=== PATIENT | male | born 1995 | race Caucasian/White ===

== ENCOUNTER 2020-12-11 08:00 | Outpatient (RCR) | payer OTHER, SELFPAY ==
[2020-11-28 12:18] VITALS: BMI 30.2
--- NOTE | 2020-11-28 12:54 | PC.ADMIT ---
Patient is a 25 year old male who was referred to PHP by his therapist d/t increase in depression with passive SI, increased in anxiety and anger. He had a recent admission to [facility] then transitioned to substance rehabilitation at [facility]. In addition, patient has 2 feloney charges and has a court appearence on 01/03/21. Patient is currently living with his parents. Please see Integrated Assessment for further details. Patient presents with depressed mood. He denied SI presently. Gave verbal permission to email him a copy of his safety plan. He is feeling guilt and shame for what he has put his parents through and what he has done to his life. Stated he is here d/t drug addiction and sex addiction. Stated he drank a lot and used cocaine on occasion however during the pandemic his substance use spiraled out of control. He is struggling with depression, self worth and self esteem issues. He also stated that he has a sex addiction and he has been with prostitutes and escorts. Patient reports that he has been tested for STD's including HIV and Hep C all of which were negative. Stated he has not engaged in sexual activity since and he was very worried about HIV and is glad that he was negative for this. He stated the PHP program is going pretty good for him so far and feels he is learning a lot and feels supported. Medications reconciled with patient and patient's pharmacy.Reports attending AA in person 5 days a week and has a sponsor.
--- NOTE | 2020-11-28 17:02 | P.HPPSP_ITS ---
HPI Chief Complaint: depression Sources of Information: patient interviewed, chart reviewed and crisis/core team assessment reviewed HPI Narrative: 25 yo male, hx of ADHD, reported depression, anxiety, SI questions bipolar, and cocaine use disorder. Recently completed detox and rehab with the [facility]. Awaits sentencing on charges of stealing a gun from his father, possession of a stolen weapon (federal charges). Expects residential time and house arrest, however states he is attempting to move forward, currently interviewing for jobs. Pt states my life has been out of control . Discussed sexual addiction- wanting attention from women. Since rehab pt is thinking about the damage he has caused family and I just feel totally not worthy of anyone's attention but I need to piece my life back together . Pt hoping PHP can help with distress tolerance skills and ideas for better coping than I have been doing. Reports SI-passive currently, but I have done a lot of damage. Past Psychiatric History: IP: Denies OP: Mayra Miller, psychotherapy PCP works with meds: Anny Peña Attends AA Pt denies hx of overt elton, however, appears to have had some hypomanic times. He reports his therapist suggested a mood stabilizer trial which we discussed. [facility], [facility] Medical History (Updated 11/29/20 @ 08:15 by Mildred Zayas APRN) ADHD Cocaine use disorder Dislocation, shoulder Heart murmur Heart valve problem Mood disorder Family History: alcoholism. Reports his mom has a problem with hoarding Social History: Living with his parents currently, whom he reports are watching him closely. Unemployed, applying for work. BA in [employer]. 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 Rehab with the [facility] Identifies cocaine/crack as DOC along with alcohol. Newly sober. Trauma History: Yes Diagnostics Vital Signs (24Hr): Body Mass Index 30.2 Meds/Allergies Meds Narrative: -Adderall XR 15 mg daily -Trazodone 50 mg HS Allergies Allergies Allergy/AdvReac Type Severity Reaction Status Date / Time salmon oil Allergy Anaphylaxis Verified 11/28/20 12:15 Mental Status Exam Mental Status Exam Patient Orientation: Person, Place, Time and Situation Level of Consciousness: Awake and Alert Patient Behavior: Appropriate and Talkative Mood Description: Appropriate, Anxious and Apprehensive Affect Description: Constricted Patient Cognition Impaired: No Ability to Follow Directions: Good Speech Pattern: Spontaneous Speech Memory Description: Intact Hallucinations: None Delusions: Not Present Thought Process: Intact Thought Content: positive for Intact Depressive Symptoms: Increased Anxiety, Hopelessness, Feelings of Guilt, Unhappiness, Low Self Esteem and Difficulty Concentrating Judgement: Good Assessment & Plan Assessment & Plan (1) Cocaine use disorder: Status: Acute Code(s): F14.10 - Cocaine abuse, uncomplicated (2) ADHD: Status: Acute Code(s): F90.9 - Attention-deficit hyperactivity disorder, unspecified type (3) Mood disorder: Status: Acute Code(s): F39 - Unspecified mood [affective] disorder Assessment and Plan: -Discussed mood disorder. Pt will review Lamictal and Trileptal for trial Certification I certify that partial hospital treatment is medically necessary due to the symptoms and problems resulting from the patient's mental illness and the f ailure to treat the patient at the partial hospital level of care would likely result in the patient requiring inpatient psychiatric care which could not be prevented at a less intensive level of care. Telehealth Telehealth Location of provider rendering services: practice address Location of patient: address on file Patient Identification confirmed using: Name, : Yes Telehealth method: voice only Patient verbally consented to treatment: Yes Patient verbally consented to billing insurance company: Yes Patient informed of any privacy concerns related to visit: Yes Time spent with patient (mins): 30
--- NOTE | 2020-12-04 13:34 | P.PNPSP_ITS ---
Subjective Subjective Date of Service: 12/04/20 Reason For Visit: depression Interim History: Pt reports [facility] is helping in that he has been able to put his problems in perspective as he hears about other peers struggles. 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 He denies symptoms of depression. He reports sleeping better. He denies SI/HI. He reports worrying about consequences of his drug use. He does admit to misusing adderall in the past and buying crack cocaine. Adderall being prescribed by PCP at this time. We discussed that adderall has more risks than actual benefit in terms of recovery. Also, it is unclear is mood disturbances related to his cocaine use. He currently denies hx of increased energy/flight of ideas, engaging in risky behaviors that are not related to his cocaine use. Medication Compliance: Yes Side effects from medications: No Attending Groups: Yes Review of Systems Cardiovascular: Reports no additional cardiovascular complaints Respiratory: Reports no additional respiratory complaints Genitourinary: Reports no additional male genitourinary complaints Reports system reviewed and no additional complaints, except as documented Mental Status Exam Mental Status Exam Patient Orientation: Person, Place, Time and Situation Level of Consciousness: Awake and Alert Patient Behavior: Appropriate and Talkative Mood Description: Appropriate Affect Description: Constricted Patient Cognition Impaired: No Ability to Follow Directions: Good Speech Pattern: Clear and Spontaneous Speech Memory Description: Intact Hallucinations: None Delusions: Not Present Thought Process: Intact Thought Content: positive for Intact Depressive Symptoms: Increased Anxiety, Hopelessness, Feelings of Guilt, Unhappiness, Low Self Esteem and Difficulty Concentrating Judgement: Good Diagnostics Vital Signs (24Hr): Body Mass Index 30.2 Assessment & Plan Assessment & Plan (1) Mood disorder: Status: Acute Code(s): F39 - Unspecified mood [affective] disorder Assessment and Plan: Pt reports hx of engaging in risky behaviors, erratic behavior that appears to be in setting of crack cocaine use. He is currently not reporting suicidal or homicidal ideation. He denies symptoms of depression. (2) Cocaine use disorder: Status: Acute Code(s): F14.10 - Cocaine abuse, uncomplicated Assessment and Plan: 1.We discussed risks of being prescribed adderall per PCP, which pt also admits he has misused in the past. I do not see any clinical indication for this pt to be on Adderall and potential risks of misuse and abuse are greater than any benefit. Patient educated on: diagnosis, medication risk/benefits, substance abuse and therapeutic strategies Informed Consent: understands Reason for contiued partial hosp. stay Substantial Risk for: rapid decompensation Certification I certify that partial hospital treatment is medically necessary due to the symptoms and problems resulting from the patient's mental illness and the failure to treat the patient at the partial hospital level of care would likely result in the patient requiring inpatient psychiatric care which could not be prevented at a less intensive level of care. Greater than 50% of the session was spent on counseling and/or coordination of care Discharge Plan Discharge Attending provider: Shaquille Connor Medications: No Action dextroamphetamine-amphetamine [Adderall XR] 15 mg Capsule,Extended Release 24hr 15 mg PO DAILY RF: 0 trazodone 50 mg Tablet 50 - 100 mg PO BEDTIME PRN (Reason: Insomnia) RF: 0 Telehealth Telehealth Location of provider rendering services: practice address Location of patient: address on file Patient Identification confirmed using: Name, : Yes Telehealth method: video Patient verbally consented to treatment: Yes Patient verbally consented to billing insurance company: Yes Patient informed of any privacy concerns related to visit: Yes Time spent with patient (mins): 15
--- NOTE | 2020-12-12 13:11 | PC.NURSE ---
I spoke with client about his discharge plan. He has a call into [facility] for longer term substance focused treatment. I also left a message with his therapist informing her of his discharge plan.
== END 2020-12-11 23:55 | disposition left against medical advice (07) ==
LOC: HO.PHPA 08:00
PROVIDERS: Visit Provider Psychiatry & Neurology Psychiatry
DX: F39 Unspecified mood [affective] disorder (principal); F90.9 Attention-deficit hyperactivity disorder, unspecified type; F14.10 Cocaine abuse, uncomplicated
CPT/HCPCS: 90791; 90853

== ENCOUNTER 2024-12-11 09:15 | Outpatient (REF) | payer OTHER, SELFPAY ==
--- NOTE | 2024-12-11 09:32 | ECG_ITS ---
Test Reason : f41.1, f14.20 Blood Pressure : */* mmHG Vent. Rate : 70 BPM Atrial Rate : 70 BPM P-R Int : 172 ms QRS Dur : 86 ms QT Int : 432 ms P-R-T Axes : 27 -8 44 degrees QTcB Int : 466 ms Normal sinus rhythm Left atrial enlargement Left ventricular hypertrophy with repolarization abnormality ( Sokolow-Kelly , Jhonatan product ) Abnormal ECG No previous ECGs available Referred By: Cory Douglas Electronically Signed By: WOLF MARTINEZ MD
--- OUTSIDE RECORDS SUMMARY | 2024-12-11 09:55 | XMS_ITS | Clinical Summary ---
Author Organization [facility] [address] [facility] [address] Address [address] [place] [address] Phone Care Team Providers Care Chemical Engraver Name Role Phone Anny Peña MD Primary Care Prov ider Allergies Active Allergy Reactions Criticality Noted Date Comments Other 08/24/2023 Fish Medications predniSONE (DELTASONE) 20 mg tablet Take two tablets at same time each day for five days. 12/24/2023 Active albuterol sulfate (ProAir RespiClick) 90 mcg/actuation aerosol powdr breath activated Inhale 1 Puff into the lungs 4 times daily as needed for Other (wheezing) 12/24/2023 Active azithromycin (ZITHROMAX) 250 mg tablet 2 pills PO today, then 1 pill PO QD for 4 days. 12/24/2023 Active sertraline (ZOLOFT) 100 mg tablet 07/28/2023 Active atomoxetine (STRATTERA) 60 mg capsule Take 1 capsule (60 mg total) by mouth 1 (one) time each day. Active Active Problems Problem Noted Date Diagnosed Date Hyperlipidemia 12/09/2023 Alcohol abuse 08/11/2023 Drug use 08/11/2023 Depression 11/13/2020 Obesity (BMI 30.0-34.9) 07/24/2020 Left ventricular outflow tract obstruction 09/11 Overview (11/21/2024): NAYE 09/19 Nonrheumatic mitral valve regurgitation 09/11/20 19 Overview (11/21/2024): NAYE 09/19 Hypertrophic cardiomyopathy 08/14/2019 Overview (11/21/2024): Cardiac MRI 07/20 Abnormal echocardiogram 06/21/2019 Overview (11/21/2024): 06/2019: LVH, severely dilated left atrium, mild-moderate mtiral regurg, trace tricupsid regurg. 08/2019L saw cardio, will be undergoing NAYE Left ventricular hypertrophy 06/21/2019 Overview (11/21/2024): On Echo 06/2019. Cardiac MRI and cardiac referral ordered Attention deficit hyperactivity disorder (ADHD) 10/07/2018 Dyslexia 10/07/2018 Concussion 02/16/2014 Overview (11/21/2024): 2009 Encounters Date Type Department Care Team Description 11/20/2024 Telephone Adult Medicine [facility] [address] [place] [address] Anny Peña MD URI; Cough from Last 3 Months Immunizations Name Administration Dates Next Due DTP 04/10/1999, 5,1994,08/17,1994 [id number] (Pentacel) 2mo to less than 5yo 07/12/1995,1994,1994,06/17 HPV, Quadrivalent 02/16/2014 Hepatitis B Pediatric (Enger ix B; Recombivax HB) to less than 20 yo 1994,1994,1994 IPV Inactivated polio (Ipol) 6wks and older 04/10/1999,1994,1994,06/17 Influenza Quadravalent, MDCK , 0.5ml, preservative free (Flucelvax) 6mo and older 12/09/2023,07/24/2020 MMR, measles mumps and rubel la Live (Priorix; M-M-R II) 12mo and older 09/22/2017,04/10/1999,04/21/1995 Meningococcal MCV4P 12/29/2011,11/02/2007 Td Tetanus diptheria (Tdvax) 7yo and older 04/10/1999 Tdap Tetanus diptheria acell ular pertussis (Boostrix; Adacel) 7yo and older 01/22/2020,11/23/2008 Varicella live (Varivax) 12m o and older 11/23/2008,04/10/1999 Surgical History Surgery Date Site/Laterality Comments SHOULDER SURGERY 2018 Right PROCEDURE: HISTORICAL SHOULDER SURGERY; COMMENT: [facility]. Dislocation then fixation Medical History Medical History Date Comments Concussion 02/16/2014 DX:Concussion; C OMMENT: 2009 Mitral regurgitation 09/11/2019 DX:Mitral r egurgitation; COMMENT: NAYE 09/19 Depression 11/13/2020 DX:Depression Alcohol abuse DX:Alcohol abuse ; COMMENT: in early remission 12/25 HOCM (hypertrophic obstructi ve cardiomyopathy) (CMS/HCC) DX:HOCM (hypertrophic obstru ctive cardiomyopathy) (HCC) Hyperlipidemia 12/09/2023 DX:Hyperlipidemi a Family History Medical History Relation Name Comments No Known Problems Brother Other: prostate Father non cancerou s No Known Problems Mother Hypertension Paternal Grandfather Lung cancer Paternal Grandmother Relation Name Status Comments Brother Alive Father Alive Maternal Grandfather Maternal Grandmother Mother Alive Paternal Grandfather Paternal Grandmother Social History Tobacco Use Types Packs/Day Years Used Date Smoking Tobacco: Light Smoker Smokeless Tobacco: Never Alcohol Use Standard Drinks/Week Comments Not Currently 0 (1 standard drink = 0.6 oz pur e alcohol) Sex and Gender Information Value Date Recorded Sex Assigned at Not on file Legal Sex Male 3:28 AM EST Gender Identity Not on file Sexual Orientation Not on file Obstetrics History Last Filed Vital Signs Vital Sign Reading Time Taken Comments Blood Pressure 92/62 12/24/2023 1:54 PM EST L A rm Pulse 92 12/24/2023 1:54 PM EST Temperature - - Respiratory Rate - - Oxygen Saturation - - Inhaled Oxygen Concentration - - Weight 89.4 kg (197 lb) 12/09/2023 8:27 AM EST Height 175.3 cm (5' 9 ) 12/09/2023 8:27 AM EST Body Mass Index 29.09 12/09/2023 8:27 AM EST Plan of Treatment Upcoming Encounters Date Type Department Care Team (Late st Contact Info) Description 12/11/2024 10:45 AM EST Office Visit Adult Medicine - [place] [address] [place] [id number] Bhargav Pena PA [address] [place] [address] Health Maintenance Due Date Last Done Comments Hepatitis A Vaccines (1 of 2 - Risk 2-dose series) 2013 Pneumococcal Vaccine: Pediatrics (0 to 5 Years) and At-Risk Patients (6 to 64 Years) (1 of 2 - PCV) 2013 HPV Vaccines (2 - Male 3-dose series) 03/16/2014 02/16/2014 Social Influencers of Health Screening 10/04/2022 COVID-19 Vaccine (2 - season) 2024 03/21/2021 Influenza Vaccine (#1) 2024 12/09/2023, 2019 Depression Screening 12/09/2024 12/09/2023 Cholesterol Screening (Lipid Panel) 12/09/2028 12/09/2023, 06/25/2015 DTaP,Tdap,and Td Vaccines (8 - Td or Tdap) 01/21/2030 01/22/2020, 11/23/2008, 04/10/1999, Additional history exists Hepatitis B Vaccines Completed 1994, 1994, 1994 HIB Vaccines Completed 07/12/1995, 06/1994, 1994, Additional history exists IPV Vaccines Completed 04/10/1999, 07/02, 1994, Additional history exists Varicella Vaccines Completed 11/23/2008, 04/10/1999 Meningococcal ACWY Vaccine Completed 12/29/2011, MMR Vaccines Completed 09/22/2017, 04/01, 04/21/1995 HIV Screening Completed 06/27/2018 Hepatitis C Screening Completed 06/28/2018 Meningococcal B Vacine Aged Out No lo nger eligible based on patient's age to complete this topic RSV Immunization Patients Under 20 months Aged Out No longer eligible based on patient's age to complete this topic Procedures Procedure Name Priority Date/Time Associated Diagnosis Comments HM DEPRESSION SCREENING Routine 12/09/2023 LIPID PANEL Routine 12/09/2023 HEPATITIS C SCREENING Routine 06/28/2018 HIV SCREENING Routine 06/27/2018 from Last 3 Months or Most Recently Relevant to Health Maintenance Results * Depression Screening (12/09/2023) Pathologist [facility] Depression Screening Abstracted [facility] Provider HEALTH MAINTENANCE Final Result * (ABNORMAL) Lipid panel (12/09/2023) [facility] LDL/HDL Ratio 6(A) 0 - 4 Triglycerides 109 0 - 150 mg/dL Cholesterol 245(A) 0 - 200 mg/dL HDL 41 >=40 mg/dL LDL Cholesterol 183(A) 0 - 100 mg/dL Blood Venous blood specimen / Unknown [facility] Provider LAB BLOOD ORDERABLES Karlie l Result * Hepatitis C Screening (06/28/2018) [facility] Hepatitis C Screening Abstracted [facility] Provider HEALTH MAINTENANCE Final Result * HIV Screening (06/27/2018) [facility] HIV Screening Abstracted [facility] Provider HEALTH MAINTENANCE Final Result from Last 3 Months or Most Recently Relevant to Health Maintenance Insurance [facility] Care Teams Chemical Engraver Relationship Specialty Start Date End Date Anny Peña MD [facility] [address] [place] [address] PCP - General Internal Medicine 02/07/14
--- OUTSIDE RECORDS SUMMARY | 2024-12-11 09:55 | XMS_ITS | Clinical Summary ---
Author Organization [facility] Address [address] [place] [phone] Phone Care Team Providers Care Mixing Picker Tender Name Role Phone Unavailable Primary Care Provider Unavailabl e Immunizations Immunization Administration Dates Next Due DTaP 04/10/1999, 5,1994,08/17,1994 Hep B, ped/adol 1994,1994,1994 Hib (PRP-T) 07/12/1995, 4,1994,06/17 IPV 04/10/1999, 5,1994,06/17 MMR 04/10/1999,04/21/1995 Meningococcal Conj (Menactra) MCV4P 12/29/2011,0 11/02/2007 Td (adult) (Tenivac), 5 Lf t etanus toxoid, PF, adsorbed 04/10/1999 Tdap 11/23/2008 Varicella 11/23/2008,04/10/1999 Family History Relation Name Status Comments Father Alive asthma Mother Alive asthma Other Siblings: older brother with asthma Social History Tobacco Use Types Packs/Day Years Used Date Smoking Tobacco: Never Assessed Sex and Gender Information Value Date Recorded Sex Assigned at Not on file Legal Sex Male 6:08 PM EDT Gender Identity Not on file Sexual Orientation Not on file Last Filed Vital Signs Vital Sign Reading Time Taken Comments Blood Pressure 120/72 12/13/2012 12:00 AM EST Pulse - - Temperature 37.6 ??C (99.7 ??F) 03/21/2010 1 2:00 AM EDT Respiratory Rate - - Oxygen Saturation - - Inhaled Oxygen Concentration - - Weight 70.2 kg (154 lb 12.8 oz) 013 12:00 AM EST Height 169.5 cm (5' 6.75 ) 12/13/2012 1 2:00 AM EST Body Mass Index 24.43 12/13/2012 12:00 AM EST Plan of Treatment Health Maintenance Due Date Last Done Comments DTaP,Tdap,and Td Vaccines (7 - Td or Tdap) 11/23/2018 11/23/2008, 04/10/1999, 04/10/1999, Additional history exists Influenza Vaccines (#1) 2024 COVID-19 Vaccine ( season) 2024 Hepatitis B Vaccines Completed 1994, 1994, 1994 HIB Vaccines Completed 07/12/1995, 06/1994, 1994, Additional history exists IPV Vaccines Completed 04/10/1999, 12/1994, 1994, Additional history exists MMR Vaccines Completed 04/10/1999, 04/21/1995 Varicella Vaccines Completed 11/23/2008, 04/10/1999 Meningococcal Vaccine Completed 12/29/2011, 008 HPV Vaccines Aged Out No longer eligi ble based on patient's age to complete this topic Hepatitis A Vaccines Aged Out No long er eligible based on patient's age to complete this topic Men B Vaccine Aged Out No longer elig ible based on patient's age to complete this topic Pneumococcal Vaccine Aged Out No long er eligible based on patient's age to complete this topic
--- OUTSIDE RECORDS SUMMARY | 2024-12-11 09:55 | XMS_ITS | Encounter Summary ---
Author Organization [facility] Address [address] [place] [phone] Phone Care Team Providers Care Apartment Community Manager Name Role Phone Unavailable Primary Care Provider Unavailabl e Encounter Details Date Type Department Care Team (Late st Contact Info) Description 03/20/2018 Conversion [facility]counter [facility] [address] [address] Social History Tobacco Use Types Packs/Day Years Used Date Smoking Tobacco: Never Assessed Sex and Gender Information Value Date Recorded Sex Assigned at Not on file Legal Sex Male 6:08 PM EDT Gender Identity Not on file Sexual Orientation Not on file documented as of this encounter Plan of Treatment Not on file documented as of this encounter Visit Diagnoses Not on filedocumented in this encounter
--- OUTSIDE RECORDS SUMMARY | 2024-12-11 09:55 | XMS_ITS | Clinical Summary ---
Author Organization [facility] Address [address] [id number] Care Team Providers Care Goat Farmer Name Role Phone Unavailable Primary Care Provider Unavailabl e Allergies No known active allergies Medications No known medications Social History Tobacco Use Types Packs/Day Years Used Date Smoking Tobacco: Never Assessed Sex and Gender Information Value Date Recorded Sex Assigned at Not on file Legal Sex Male 8:25 PM EDT Gender Identity Not on file Sexual Orientation Not on file Last Filed Vital Signs Vital Sign Reading Time Taken Comments Blood Pressure 108/66 02/06/2014 8:39 PM EDT Pulse 69 02/06/2014 8:39 PM EDT Temperature 37 ??C (98.6 ??F) 02/06/2014 8:39 PM EDT Respiratory Rate - - Oxygen Saturation - - Inhaled Oxygen Concentration - - Weight 72.6 kg (160 lb) 02/06/2014 8:39 PM EDT Height 170.2 cm (5' 7 ) 02/06/2014 8:39 PM EDT Body Mass Index 25.06 02/06/2014 8:39 PM EDT Plan of Treatment Health Maintenance Due Date Last Done Comments Hepatitis C Screening 1994 DTaP/Tdap/Td (1 - Tdap) 2012 Hep B (1 of 3 - 19+ 3-dose series) 2013 COVID-19 Vaccine (2023-2 5 season) 2024 Influenza (#1) 2024 Zoster (Shingrix) (1 of 2) 2044 HPV Vaccine Aged Out No longer eligi ble based on patient's age to complete this topic Hep A Aged Out No longer eligi ble based on patient's age to complete this topic Hib Aged Out No longer eligi ble based on patient's age to complete this topic Meningococcal ACWY Aged Out No longer eligible based on patient's age to complete this topic Pneumococcal Aged Out No longer eligi ble based on patient's age to complete this topic Insurance [facility] [facility] (HMO)
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
--- OUTSIDE RECORDS SUMMARY | 2024-12-11 09:55 | XMS_ITS | Encounter Summary ---
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
[2024-12-11 10:14] LABS: Amphetamine Screen Urine Not Detected (Not Detect); Barbiturates, Urine Not Detected (Not Detect); Benzodiazepines Screen Urine Not Detected (Not Detect); Buprenorphine Scr Not Detected (Not Detect); Cannabinoid Screen Urine POSITIVE (Not Detect); Cocaine Screen Urine Not Detected (Not Detect); Fentanyl, urine Not Detected (Not Detect); Methadone Screen, Urine Not Detected (Not Detect); Opiate Screen Urine Not Detected (Not Detect); Oxycodone Screen Urine Not Detected (Not Detect); Phencyclidine Screen Urine Not Detected (Not Detect)
== END 2024-12-11 09:16 | disposition home or self-care (01) ==
LOC: HO.LAB 09:15
PROVIDERS: PCP Internal Medicine; Visit Provider Nurse Practitioner Psychiatric/Mental Health
DX: F41.1 Generalized anxiety disorder (principal); F14.20 Cocaine dependence, uncomplicated; Z79.899 Other long term (current) drug therapy
CPT/HCPCS: 80307; 93005

== ENCOUNTER → 2024-12-11 09:32 | Outpatient (BNV) | payer OTHER, SELFPAY | PROVIDERS: PCP Internal Medicine; Visit Provider Internal Medicine Cardiovascular Disease | DX: I51.7 Cardiomegaly (principal) | CPT/HCPCS: 93010 ==